=== PATIENT | male | born 1985 | race African-American/Black ===

== ENCOUNTER 2017-04-23 16:22 | Emergency (ER) | payer SELFPAY ==
[2017-04-23 16:42] VITALS: BP 151/84; PULSE 61; TEMP 98.5; BMI 27.1
--- NOTE | 2017-04-23 18:25 | PDOC ---
Attending Attestation - HPI HPI: 04/23/17 18:58 31 y/o M with no PMHx presents to the ED with lower abdominal pain for 4 days. Patient reports the pain is constant and not associated with food intake. Patient reports normal BM. Patient reports he drinks heavily on the weekends. Denies blood in stool. Denies fever, chills, nausea, vomiting, diarrhea. Denies chest pain, SOB. - Physicial Exam PE: 04/23/17 18:58 GENERAL: Awake, alert, and fully oriented, in no acute distress HEAD: No signs of trauma EYES: PERRLA, EOMI, sclera anicteric, conjunctiva clear ENT: Auricles normal inspection, hearing grossly normal, nares patent, oropharynx clear without exudates. Moist mucosa NECK: Normal ROM, supple, no lymphadenopathy, JVD, or masses LUNGS: Breath sounds equal, clear to auscultation bilaterally. No wheezes, and no crackles HEART: Regular rate and rhythm, normal S1 and S2, no murmurs, rubs or gallops ABDOMEN: LLQ tenderness. Soft, normoactive bowel sounds. No guarding, no rebound. No masses EXTREMITIES: Normal range of motion, no edema. No clubbing or cyanosis. No cords, erythema, or tenderness NEUROLOGICAL: Cranial nerves II through XII grossly intact. Normal speech, normal gait SKIN: Warm, Dry, normal turgor, no rashes or lesions noted. - Medical Decision Making 04/23/17 18:58 Documentation prepared by Livia Steele, acting as medical device sales for Elicia Welch DO. <Livia Steele - Last Filed: 04/23/17 18:58> - Resident Resident Name: Tye Soto - ED Attending Attestation I have performed the following: I have examined & evaluated the patient, The case was reviewed & discussed with the resident, I agree w/resident's findings & plan, Exceptions are as noted - Medical Decision Making 04/23/17 19:27 a/p: 31yo male with 4 days of LLQ pain and loose stool -labs -ct abd/pelvis to r/o diverticulitis vs colitis 04/25/17 09:17 I, Dr. Elicia Welch DO, attest that this document has been prepared under my direction and personally reviewed by me in its entirety. I further attest, that it accurately reflects all work, treatment, procedures and medical decision -making performed by me. 04/25/17 09:17 pt was signed out to the oncoming ED physician pending CT scan <Elicia Welch - Last Filed: 04/25/17 09:17>
--- NOTE | 2017-04-23 18:34 | PDOC ---
History of Present Illness - General Chief Complaint: Pain Stated Complaint: ABDOMINAL PAIN Time Seen by Provider: 04/23/17 17:33 History Source: Patient Exam Limitations: No Limitations - History of Present Illness Initial Comments: 04/23/17 18:30 31 y.o. M with no pmh presenting with abdominal pain. Patient has 4 day history of crampy abdominal pain first began after eating a meal. Pain has been constant. Pain improves on defecation and worsens when laying flat. Pain does not radiate. Patient endorses decreased appetite and nausea. Patient denies Fevers, chills, vomiting, diarrhea, constipation, changes in bowels or bladder. Past surgical hx: Inguinal hernia and umbilical hernia as a child Allergies- nkda social hx- +alcohol (daily, could not quantify), no smoking, no drugs PCP- None Past History - Past Medical History Allergies/Adverse Reactions: Allergies Allergy/AdvReac Type Severity Reaction Status Date / Time No Known Allergies Allergy Verified 04/23/17 16:38 Home Medications: Ambulatory Orders NK [No Known Home Medication] 04/23/17 Other medical history: DENIES - Surgical History Abdominal Surgery: Yes (UMBILICAL AND INGUINAL HERNIA REPAIR) - Immunization History Immunization Up to Date: Yes - Suicide/Smoking/Psychosocial Hx Smoking History: Never smoked Have you smoked in the past 12 months: No Information on smoking cessation initiated: No Hx Alcohol Use: No Drug/Substance Use Hx: No Substance Use Type: Alcohol Review of Systems - Review of Systems Constitutional: No: Chills, Diaphoresis, Fever, Loss of Appetite, Malaise, Night Sweats, Weakness, Weight Stable, Unintentional Wgt. Loss, Unexplained wgt Loss HEENTM: No: Eye Pain, Blurred Vision, Tearing, Recent change in vision, Double Vision, Cataracts, Ear Pain, Ocular Prothesis, Ear Discharge, Nose Pain, Nose Congestion, Tinnitus, Nose Bleeding, Hearing Loss, Throat Pain, Throat Swelling , Mouth Pain, Dental Problems, Difficulty Swallowing, Mouth Swelling Respiratory: No: Cough, Orthopnea, Shortness of Breath, SOB with Exertion, SOB at Rest, Stridor, Wheezing, Productive cough, Hemoptysis Cardiac (ROS): No: Chest Pain, Edema, Irregular Heart Rate, Lightheadedness, Palpitations, Syncope, Chest Tightness ABD/GI: Yes: Nausea, Poor Appetite, Abdominal cramping. No: Abd. Pain w/ defecation, Blood Streaked Bowels, Constipated, Rectal Bleeding, Vomiting : No: Burning, Dysuria, Discharge, Frequency, Flank Pain, Hematuria, Incontinence, Pain, Urgency, Testicular Mass, Testicular Swelling, Lesions, Testicular Pain *Physical Exam - Vital Signs Last Vital Signs Temp Pulse Resp BP Pulse Ox 98.5 F 61 16 151/84 100 04/23/17 16:38 04/23/17 16:38 04/23/17 16:38 04/23/17 16:38 04/23/17 16:38 - Physical Exam General Appearance: Yes: Nourished, Appropriately Dressed, Apparent Distress HEENT: positive: EOMI, BENJAMIN, Normal ENT Inspection, Normal Voice, Pharynx Normal Neck: positive: Trachea midline Respiratory/Chest: positive: Lungs Clear, Normal Breath Sounds. negative: Respiratory Distress, Accessory Muscle Use Cardiovascular: positive: Regular Rhythm, Regular Rate, S1, S2 Vascular Pulses: Doralis-Pedis (L): 2+ Gastrointestinal/Abdominal: positive: Normal Bowel Sounds, Tender (Lower abd tenderness), Soft. negative: Organomegaly Musculoskeletal: negative: CVA Tenderness Extremity: positive: Normal Capillary Refill, Normal Inspection, Normal Range of Motion Integumentary: positive: Normal Color, Dry, Warm Neurologic: positive: insurance broker II-XII NML intact, Fully Oriented, Alert, Normal Mood/ Affect, Normal Response ED Treatment Course - LABORATORY CBC & Chemistry Diagram: 04/23/17 18:30 04/23/17 18:30 Medical Decision Making - Medical Decision Making 04/23/17 18:36 31 y.o. M with no pmh presenting with abdominal pain Plan: cbc, cmp, lipase, UA 04/23/17 20:38 Patient signed out to Dr. Covarrubias *DC/Admit/Observation/Transfer Diagnosis at time of Disposition: Abdominal pain Qualifiers: Abdominal location: lower abdomen, unspecified Qualified Code(s): R10.30 - Lower abdominal pain, unspecified
[2017-04-23 19:13] LABS: URINE APPEARANCE CLEAR; URINE BILIRUBIN NEGATIVE (NEGATIVE); URINE BLOOD NEGATIVE (NEGATIVE); URINE COLOR YELLOW; URINE GLUCOSE (UA) NEGATIVE (NEGATIVE); URINE KETONE NEGATIVE (NEGATIVE); URINE LEUK ESTERASE NEGATIVE (NEGATIVE); URINE NITRITE NEGATIVE (NEGATIVE); URINE PROTEIN NEGATIVE (NEGATIVE); URINE UROBILINOGEN 4.0 E.U/dl mg/dL (0.2-1.0)
--- NOTE | 2017-04-23 19:36 | PDOC ---
*Physical Exam - Vital Signs Last Vital Signs Temp Pulse Resp BP Pulse Ox 98.5 F 61 16 151/84 100 04/23/17 16:38 04/23/17 16:38 04/23/17 16:38 04/23/17 16:38 04/23/17 16:38 ED Treatment Course - LABORATORY CBC & Chemistry Diagram: 04/23/17 18:30 04/23/17 18:30 - ADDITIONAL ORDERS Additional order review: Laboratory Results 04/23/17 18:30 Urine Color Yellow Urine Appearance Clear Urine pH 7.0 Urine Protein Negative Urine Glucose (UA) Negative Urine Ketones Negative Urine Blood Negative Urine Nitrite Negative Urine Bilirubin Negative Urine Urobilinogen 4.0 e.u/dl Medical Decision Making - Medical Decision Making 04/23/17 19:[address] Soto. Patient is 31M with abdominal pain. Pending labs and CT. Will discharge if negative. Pain is currently controlled. 04/23/17 20:30 Laboratory Tests 04/23/17 04/23/17 18:30 18:30 WBC 8.9 Hgb 14.8 Hct 43.4 Plt Count 271 Anion Gap 4 L Creatinine 1.0 Total Bilirubin 1.3 H CBC normal. No gap, kidney function normal, Tbili slightly elevated to 1.3 *DC/Admit/Observation/Transfer Diagnosis at time of Disposition: Abdominal pain Qualifiers: Abdominal location: lower abdomen, unspecified Qualified Code(s): R10.30 - Lower abdominal pain, unspecified
[2017-04-23 19:42] LABS: ALBUMIN 4.3 g/dl (3.4-5.0); ANION GAP 4 (8-16); CALCIUM 9.5 mg/dL (8.5-10.1); CO2 31 mmol/L (21-32); GLUCOSE,RANDOM 94 mg/dL (74-106)
[2017-04-23 19:45] LABS: ALK PHOS 57 U/L (45-117); BILIRUBIN,TOTAL 1.3 mg/dL (0.2-1.0); SGOT/AST 28 U/L (15-37); SGPT/ALT 60 U/L (12-78); TOT PROT 8.1 g/dl (6.4-8.2)
[2017-04-23 20:08] LABS: BASOPHIL 0.5 % (0-2.0); EOSINOPHIL 1.7 % (0-4.5); MCH 29.2 pg (25.7-33.7); MCHC 34.1 g/dl (32.0-35.9); MEAN CELL VOLUME 85.7 fl (80-96); MEAN PLT VOLUME 8.6 fl (7.5-11.1); NEUTROPHILS 58.8 % (42.8-82.8); PLATELET COUNT 271 K/MM3 (134-434); RDW 12.9 % (11.9-15.9); WHITE BLOOD COUNT 8.9 K/mm3 (4.0-10.0)
--- NOTE | 2017-04-23 23:56 | PDOC ---
*Physical Exam - Vital Signs Last Vital Signs Temp Pulse Resp BP Pulse Ox 98.5 F 61 16 151/84 100 04/23/17 16:38 04/23/17 16:38 04/23/17 16:38 04/23/17 16:38 04/23/17 16:38 ED Treatment Course - LABORATORY CBC & Chemistry Diagram: 04/23/17 18:30 04/23/17 18:30 - ADDITIONAL ORDERS Additional order review: Laboratory Results 04/23/17 04/23/17 18:30 18:30 Sodium 139 Potassium 4.2 Chloride 104 Carbon Dioxide 31 Anion Gap 4 L BUN 11 Creatinine 1.0 Creat Clearance w eGFR > 60 Random Glucose 94 Calcium 9.5 Total Bilirubin 1.3 H AST 28 ALT 60 Alkaline Phosphatase 57 Total Protein 8.1 Albumin 4.3 Lipase 91 Urine Color Yellow Urine Appearance Clear Urine pH 7.0 Ur Specific Leslie 1.020 Urine Protein Negative Urine Glucose (UA) Negative Urine Ketones Negative Urine Blood Negative Urine Nitrite Negative Urine Bilirubin Negative Urine Urobilinogen 4.0 e.u/dl 04/23/17 18:30 RBC 5.06 MCV 85.7 MCHC 34.1 RDW 12.9 MPV 8.6 Neutrophils % 58.8 Lymphocytes % 30.1 Monocytes % 8.9 Eosinophils % 1.7 Basophils % 0.5 Medical Decision Making - Medical Decision Making 04/23/17 23:50 ct scn abd/pel reviewed with surgeon Kiara and she doesn't feel there is any surgical emergencies and did nt se evidence of small bowel obstruction -REASSESSMENT: pt has a totally benign abdominal exam,never vomited during his ER stay, no fever and his labs were all unremarkable -I did speak w surgery because ct scan reading mentioned possibility of possible early sbo but his clinicial exam is totally benign at this time .,lab results are unremarkable I spoke at length with this pt and told him not to drink alcohol(he had been drinking heavily( and to eat healthy food If he dev any fever,pain or vomiting -he is to return *DC/Admit/Observation/Transfer Diagnosis at time of Disposition: Abdominal pain Qualifiers: Abdominal location: lower abdomen, unspecified Qualified Code(s): R10.30 - Lower abdominal pain, unspecified - Discharge Dispostion Disposition: HOME Condition at time of disposition: Stable - Patient Instructions Printed Discharge Instructions: DI for Abdominal Pain-Adult Additional Instructions: The medical clinic is located at [address] [place] [address] . Telephone number is [phone] Please return to the emergency department if you develop any worsening symptoms, fever,vomiting
== END 2017-04-24 00:09 | disposition home or self-care (01) ==
LOC: JER 16:22
DX: R10.30 Lower abdominal pain, unspecified (principal)
CPT/HCPCS: 36415; 74177-TC; 80053; 81003; 83690; 85025; 99283-25; Q9967